=== PATIENT | female | born 1980 | race Caucasian/White ===

== ENCOUNTER 2018-11-09 15:13 | Outpatient (CLI) | payer BC ==
[2018-11-09 15:11] VITALS: BP 121/77
== END 2018-11-09 16:00 | disposition home or self-care (01) ==
LOC: ORTHO 15:13
PROVIDERS: ATTEND Orthopaedic Surgery
DX: S93.491A Sprain of other ligament of right ankle, initial encounter (principal); X58.XXXA Exposure to other specified factors, initial encounter; Y93.89 Activity, other specified; Y92.89 Other specified places as the place of occurrence of the external cause; Y99.8 Other external cause status
CPT/HCPCS: 73610; 99213

== ENCOUNTER 2020-02-07 20:48 | Inpatient (IN) | payer BC ==
[~2020-02-07] VITALS: Ht 154.9 cm; Wt 79.0 kg
[2020-02-07 18:03] VITALS: BP 111/73
[2020-02-07] MEDS ORDERED: normal saline 1000ML IV soln IV ONE (21:05)
[2020-02-07 21:30] LABS: BASOPHILS % (AUTO) 0.2 % (0-1); EOSINOPHILS % (AUTO) 0.2 % (0-6); HEMOGLOBIN 14.6 g/dl (12.0-16.0); LYMPHOCYTES # (AUTO) 1.3 X10'3 (1.1-4.8); MEAN CORPUSCULAR HEMOGLOBIN 29.2 PG (27.0-31.0); MEAN CORPUSCULAR HGB CONC 33.2 g/dL (33.0-36.5); MEAN CORPUSCULAR VOLUME 87.8 FL (78-98); MEAN PLATELET VOLUME 8.6 FL (7.4-10.4); MONOCYTES # (AUTO) 1.2 X10'3 (0-0.9); MONOCYTES % (AUTO) 5.6 % (2-12); NEUTROPHILS # (AUTO) 18.4 X10'3 (1.8-7.7); PLATELET COUNT 304 X10'3 (140-440); RED BLOOD COUNT 5.01 X10'6 (4.20-5.60); RED CELL DISTRIBUTION WIDTH 13.1 % (11.5-14.5)
[2020-02-07 21:46] LABS: ALANINE AMINOTRANSFERASE 21 U/L (12-78); ALBUMIN 4.3 G/DL (3.4-5.0); ALBUMIN/GLOBULIN RATIO 0.9 (1.1-1.5); ALKALINE PHOSPHATASE 66 IU/L (46-116); ANION GAP 12 (8-16); ASPARTATE AMINO TRANSFERASE 19 U/L (10-37); BILIRUBIN,TOTAL 0.7 MG/DL (0.1-1.0); BLOOD UREA NITROGEN 13 MG/DL (7-18); BUN/CREATININE RATIO 16.9 (6.6-38.0); CALCIUM 9.5 MG/DL (8.5-10.1); CHLORIDE 98 MMOL/L (99-107); CREATININE 0.77 MG/DL (0.40-0.90); GLUCOSE 111 MG/DL (70-104); LIPASE 109 U/L (73-393); MAGNESIUM 1.6 MG/DL (1.5-2.4); POTASSIUM 3.7 MMOL/L (3.5-5.1); SODIUM 136 MMOL/L (135-145); TOTAL CARBON DIOXIDE 26.3 MMOL/L (24-32); TOTAL PROTEIN 9.2 G/DL (6.4-8.2); eGFR 83 ML/MIN
[2020-02-07] MEDS ORDERED: cefepime 1GM in D5W 50mL 50 ML IV ONE (22:05)
[2020-02-07] MEDS ORDERED: cefepime inj. 1 GM in normal saline 100ml IV soln 100 ML IV ONE (22:11)
[2020-02-07] MEDS ORDERED: morphine 4 MG/ML inj SYRINge IV ONE (22:15)
[2020-02-07] MEDS ORDERED: iohexol 300mg/ml 100ml inj. ONE (22:21)
[2020-02-07 22:39] LABS: URINE HCG NEGATIVE (NEG)
[2020-02-07 22:40] LABS: CLARITY,URINE SLIGHTLY CLOUDY (Clear); COLOR,URINE YELLOW (Yellow); GLUCOSE, URINE NEGATIVE (Neg); KETONES,URINE NEGATIVE (Neg); LEUKOCYTE ESTERASE ,URINE SMALL (Neg); NITRITES, URINE NEGATIVE (Neg); OCCULT BLOOD,URINE LARGE (Neg); PROTEIN,URINE NEGATIVE (Neg); UROBILINOGEN,URINE 0.2 E.U/dL (0.2-1.0)
[2020-02-07 22:48] LABS: UA COLLECTION TYPE CLN CATCH MIDSTREAM
[2020-02-07 22:50] LABS: BACTERIA,URINE FEW /HPF (Neg); RBC,URINE 20-50 /HPF (0-2); SQUAMOUS EPITHELIAL CELL,UR FEW /LPF (FEW); WBC,URINE 0-4 /HPF (0-4)
[2020-02-07] MEDS ORDERED: LORazepam 2 mg/ml vial IV ONE (23:10)
[2020-02-07] MEDS ORDERED: ROSU10TA28 PO (23:21)
[2020-02-08] VITALS (19 sets, daily range): BP systolic 90–171; BP diastolic 58–78
[2020-02-08] MEDS ORDERED: acetaminophen 325mg tablet PO PRN (00:15)
[2020-02-08] MEDS ORDERED: mag hydrox/Alum hydrox/simeth 30ml oral suspension PO PRN (00:15)
[2020-02-08] MEDS ORDERED: magnesium hydroxide 30ml (MOM) UD suspension PO PRN (00:15)
[2020-02-08] MEDS ORDERED: morphine 2 MG/ML inj. syringe IV PRN ×3 (00:15→11:15)
--- NOTE | 2020-02-08 00:45 | NUR ---
Received report from Yael SOTO from the ER. Patient arrived at 0100 on a gurney, saline locked, room air, vss, a/o. No signs of distress will continue to monitor
[2020-02-08] MEDS: normal saline 1000ml 1,000 ML IV SCH ×3 (01:16→20:11)
[2020-02-08] MEDS ORDERED: acetaminophen 1,000mg/100ml IV 100 ML IV SCH (02:00)
--- NOTE | 2020-02-08 04:20 | NUR ---
Patient had a headache gave her 1 tylenol at 0420 with a little sip of water patient states her headache was a little better
[2020-02-08] MEDS ORDERED: acetaminophen 325mg tablet ONE (04:21)
--- NOTE | 2020-02-08 06:21 | NUR ---
Problems reprioritized. Patient report given, questions answered & plan of care reviewed with Vinicio SOTO.
[2020-02-08] MEDS: cefepime inj. 1 GM in normal saline 100ml IV soln 100 ML IV SCH ×3 (08:11→23:24)
[2020-02-08] MEDS ORDERED: BUPIVAcaine/PF 2.5 mg/ml (0.25%) 30ml vial ONE (08:29)
[2020-02-08] MEDS: ondansetron/PF 4mg/2ml inj IV PRN ×3 (08:52→21:57)
--- NOTE | 2020-02-08 09:14 | NUR ---
Report given to Kristine at the PACU over the phone
--- NOTE | 2020-02-08 10:30 | NUR ---
Patient just left the room, went to OR with the tech
[2020-02-08] MEDS ORDERED: sevoflurane 250ml liquid IH ONE (10:34)
[2020-02-08] MEDS ORDERED: midazolam 2 mg/2 ml injection ONE (10:38)
[2020-02-08] MEDS ORDERED: fentaNYL/PF 50MCG/1 ML 2ML syringe ONE (10:38)
[2020-02-08] MEDS ORDERED: rocuronium 10mg/ml inj IV ONE (11:09)
[2020-02-08] MEDS ORDERED: dexamethasone sod phosphate 4mg/ml inj. ONE (11:09)
[2020-02-08] MEDS ORDERED: ceFOXitin 2GM-NS 50mL ADDVANT. 50 ML IV ONE (11:09)
[2020-02-08] MEDS ORDERED: propofol inj 20 ML IV ONE (11:09)
[2020-02-08] MEDS ORDERED: ringers solution, lacted 1,000 ML IV SCH (11:11)
[2020-02-08] MEDS ORDERED: morphine 4 MG/ML inj SYRINge IV PRN (11:15)
[2020-02-08] MEDS ORDERED: ondansetron/PF 4mg/2ml inj IV PRN (11:15)
[2020-02-08] MEDS ORDERED: meperidine/PF 25mg/ml syringe IV PRN ×3 (11:15)
[2020-02-08] MEDS ORDERED: proCHLORperazine 10 MG/2 ml inj IV PRN (11:15)
[2020-02-08] MEDS ORDERED: ondansetron/PF 4mg/2ml inj ONE (11:39)
[2020-02-08] MEDS ORDERED: neostigmine methylsulfate 1 MG/ML 10ml vial ONE (11:39)
[2020-02-08] MEDS ORDERED: glycopyrrolate 0.2mg/ml inj ONE (11:40)
--- NOTE | 2020-02-08 11:59 | NUR ---
Received from OR via SURGICAL BED , accompanied by Anesthesiologist ISABELLA and report given by Anesthesiolgist. PATIENT WITH 20G PIV IN RIGHT AC URNNING LR AT 100, DENIES PAIN AT THIS TIME. PATIENT WITH 3 ABDOMINAL LAP SITES PRESENT AND ARE ALL CDI CURRENTLY. VSS. MEDICATED FOR NAUSEA AND POST OP SHIVERS UPON ARRIVAL. SCDS DONNED. 10L MASK ON WITH 100% SATURATIONS. Addendum: 02/08/20 at 1254 by Az Quezada RN, RN Amended: Links added.
--- NOTE | 2020-02-08 13:09 | NUR ---
ALL CRITERIA FOR TRANSFER TO THE FLOOR HAS BEEN ACHIEVED. REPORT GIVEN AND ALL QUESTIONS ANSWERED, VSS. BED LOW 2 RAILS UP, CALL LIGHT PRESENT AND PATIENT HOOKED UP TO ALL LINES AND VSS. PATIENTS BRITTANY RAMON PRESENT TO ACCEPT CARE. STILL WITH C.O. NAUSEA DESPITE CALLIE SOTO PRESENT TO ACCEPT Addendum: 02/08/20 at 1318 by Az Quezada RN, RN Amended: Links added.
--- NOTE | 2020-02-08 14:48 | NUR ---
Patient complaining of incision pain but she did not want to take Morphine as she did not feel good about it. Before surgery she was requesting for Ibuprofen for her migraine and she also want to try it for the incisional pain. Dr. Santamaria notified about this and order received.
[2020-02-08] MEDS: ibuprofen tablet 400 MG TABLET PO PRN ×2 (15:53→21:57)
--- NOTE | 2020-02-08 18:06 | NUR ---
Patient in room [facility]. I have received report from Vinicio SOTO and had the opportunity to ask questions and assume patient care.
--- NOTE | 2020-02-08 18:13 | NUR ---
Problems reprioritized. Patient report given, questions answered & plan of care reviewed with Elizabeth SOTO.
[2020-02-08] MEDS: lactobacillus rhamnosus 10,000 MMU CELLS/CAPSULE PO SCH (19:18)
[2020-02-09 00:06] VITALS: BP 113/74
[2020-02-09] MEDS: normal saline 1000ml 1,000 ML IV SCH ×3 (01:07→20:50)
[2020-02-09 04:10] VITALS: BP 104/70
[2020-02-09] MEDS: ibuprofen tablet 400 MG TABLET PO PRN ×3 (05:05→22:57)
[2020-02-09 05:23] LABS: ALANINE AMINOTRANSFERASE 21 U/L (12-78); ALBUMIN/GLOBULIN RATIO 0.8 (1.1-1.5); ALKALINE PHOSPHATASE 50 IU/L (46-116); ANION GAP 7 (8-16); ASPARTATE AMINO TRANSFERASE 15 U/L (10-37); BASOPHILS % (AUTO) 0.1 % (0-1); BILIRUBIN,TOTAL 0.4 MG/DL (0.1-1.0); BLOOD UREA NITROGEN 6 MG/DL (7-18); BUN/CREATININE RATIO 9.5 (6.6-38.0); CALCIUM 8.1 MG/DL (8.5-10.1); CHLORIDE 108 MMOL/L (99-107); CREATININE 0.63 MG/DL (0.40-0.90); EOSINOPHILS % (AUTO) 0 % (0-6); GLUCOSE 113 MG/DL (70-104); HEMATOCRIT 38.1 % (35.0-45.0); HEMOGLOBIN 12.5 g/dl (12.0-16.0); LYMPHOCYTES # (AUTO) 0.9 X10'3 (1.1-4.8); LYMPHOCYTES % (AUTO) 7.9 % (21-51); MEAN CORPUSCULAR HGB CONC 32.7 g/dL (33.0-36.5); MEAN CORPUSCULAR VOLUME 88.8 FL (78-98); MONOCYTES # (AUTO) 0.7 X10'3 (0-0.9); MONOCYTES % (AUTO) 5.8 % (2-12); NEUTROPHILS % (AUTO) 86.2 % (42-75); PLATELET COUNT 251 X10'3 (140-440); POTASSIUM 3.8 MMOL/L (3.5-5.1); RED CELL DISTRIBUTION WIDTH 13.3 % (11.5-14.5); SODIUM 139 MMOL/L (135-145); TOTAL CARBON DIOXIDE 23.7 MMOL/L (24-32); TOTAL PROTEIN 6.8 G/DL (6.4-8.2); WHITE BLOOD COUNT 11.6 X10'3 (4.5-11.0); eGFR > 90 ML/MIN
--- NOTE | 2020-02-09 06:25 | NUR ---
Problems reprioritized. Patient report given, questions answered & plan of care reviewed with Cynthia SOTO.
--- NOTE | 2020-02-09 06:57 | NUR ---
Patient in room [facility] 340. I have received report from BRITTANY Johnson and had the opportunity to ask questions and assume patient care.
[2020-02-09 08:00] VITALS: BP 116/64
[2020-02-09] MEDS: lactobacillus rhamnosus 10,000 MMU CELLS/CAPSULE PO SCH ×2 (08:07→20:49)
[2020-02-09] MEDS: cefepime inj. 1 GM in normal saline 100ml IV soln 100 ML IV SCH ×2 (08:08→16:18)
[2020-02-09] MEDS: ondansetron/PF 4mg/2ml inj IV PRN ×2 (10:30→16:13)
[2020-02-09 12:00] VITALS: BP 100/53
--- NOTE | 2020-02-09 17:23 | NUR ---
Dr. Chaudhry rounded stating pt is ok to dc'g home in am. DC'g instructions verbalized as on discharge instructions.
[2020-02-09 18:00] VITALS: BP 113/67
--- NOTE | 2020-02-09 18:10 | NUR ---
Patient in room [facility]. I have received report from BRITTANY Navarro and had the opportunity to ask questions and assume patient care.
--- NOTE | 2020-02-09 18:30 | NUR ---
Dr Chaudhry in to see pt. Ok to D/C pt in the AM 02/10/20
--- NOTE | 2020-02-09 19:46 | NUR ---
Problems reprioritized. Patient report given, questions answered & plan of care reviewed with ivonne TANG.
[2020-02-10 00:13] VITALS: BP 92/58
[2020-02-10] MEDS: cefepime inj. 1 GM in normal saline 100ml IV soln 100 ML IV SCH ×2 (00:18→07:41)
[2020-02-10] MEDS: normal saline 1000ml 1,000 ML IV SCH (03:42)
--- NOTE | 2020-02-10 06:13 | NUR ---
Problems reprioritized. Patient report given, questions answered & plan of care reviewed with BRITTANY Navarro.
--- NOTE | 2020-02-10 06:16 | NUR ---
Patient in room [facility]. I have received report from BRITTANY Wilson and had the opportunity to ask questions and assume patient care.
[2020-02-10 06:26] LABS: BASOPHILS % (AUTO) 0.3 % (0-1); EOSINOPHILS # (AUTO) 0.4 X10'3 (0-0.9); EOSINOPHILS % (AUTO) 3.5 % (0-6); HEMATOCRIT 32.8 % (35.0-45.0); LYMPHOCYTES % (AUTO) 29.2 % (21-51); MEAN CORPUSCULAR HGB CONC 33.5 g/dL (33.0-36.5); MEAN CORPUSCULAR VOLUME 89.7 FL (78-98); MEAN PLATELET VOLUME 9.1 FL (7.4-10.4); MONOCYTES # (AUTO) 0.6 X10'3 (0-0.9); NEUTROPHILS # (AUTO) 6.4 X10'3 (1.8-7.7); PLATELET COUNT 232 X10'3 (140-440); RED BLOOD COUNT 3.65 X10'6 (4.20-5.60); RED CELL DISTRIBUTION WIDTH 13.6 % (11.5-14.5); WHITE BLOOD COUNT 10.4 X10'3 (4.5-11.0)
[2020-02-10 06:41] LABS: ALANINE AMINOTRANSFERASE 14 U/L (12-78); ALBUMIN 2.6 G/DL (3.4-5.0); ALBUMIN/GLOBULIN RATIO 0.8 (1.1-1.5); ALKALINE PHOSPHATASE 42 IU/L (46-116); ANION GAP 8 (8-16); ASPARTATE AMINO TRANSFERASE 10 U/L (10-37); BILIRUBIN,TOTAL 0.4 MG/DL (0.1-1.0); BLOOD UREA NITROGEN 9 MG/DL (7-18); CALCIUM 7.5 MG/DL (8.5-10.1); CHLORIDE 110 MMOL/L (99-107); CREATININE 0.69 MG/DL (0.40-0.90); GLUCOSE 81 MG/DL (70-104); POTASSIUM 3.8 MMOL/L (3.5-5.1); SODIUM 142 MMOL/L (135-145); TOTAL CARBON DIOXIDE 24.2 MMOL/L (24-32); TOTAL PROTEIN 5.7 G/DL (6.4-8.2); eGFR > 90 ML/MIN
[2020-02-10 07:00] VITALS: BP 104/66
[2020-02-10] MEDS: ondansetron/PF 4mg/2ml inj IV PRN (07:37)
[2020-02-10] MEDS: lactobacillus rhamnosus 10,000 MMU CELLS/CAPSULE PO SCH (07:47)
[2020-02-10] MEDS: ibuprofen tablet 400 MG TABLET PO PRN (07:50)
[2020-02-10] MEDS ORDERED: ONDA4TAB6 PO (09:03)
[2020-02-10] MEDS ORDERED: CLIN-5 PO (09:03)
[2020-02-10] MEDS ORDERED: IBUP-1985 PO (09:06)
[2020-02-10] MEDS ORDERED: OMEP20CA15 PO (09:06)
[2020-02-10] MEDS ORDERED: ACET-1008 PO (09:06)
--- NOTE | 2020-02-10 09:51 | NUR ---
Pt. D/C'd home in stable conditions. IV removed with cannula intact. Pt tolerating regular diet well. medicated for nausea x1 prior discharge. Pt was escorted walking to main lobby, left the hospital via private vehicle accompanied by .
== END 2020-02-10 11:06 | disposition home or self-care (01) | DRG 854 ==
LOC: ER 20:49 → SUR 3N 02-08 00:11 → CMPBEDREQ 02-08 03:01 → SUR 3N 02-08 20:20
PROVIDERS: ADMIT Internal Medicine; ATTEND Internal Medicine
PROC: BW211ZZ Computerized Tomography (CT Scan) of Abdomen and Pelvis using Low Osmolar Contrast (ICD-10-PCS; 2020-02-07)
PROC: 0DTJ4ZZ Resection of Appendix, Percutaneous Endoscopic Approach (ICD-10-PCS; principal; 2020-02-08 10:34)
DX: A41.9 Sepsis, unspecified organism (principal); K35.80 Unspecified acute appendicitis; Z88.0 Allergy status to penicillin
CPT/HCPCS: Z7506; Z7508; 36415; 71045; 74177; 76700; 80053; 81001; 81025; 83605; 83690; 83735; 84145; 85025; 87040; 87081; 87088; 93005; 99285; A4215; A4314; A4618; A7000; G0378; J0131; J0692; J0694; J1100; J2060; J2175; J2250; J2270; J2405; J2704; J2710; J3010; J3490; J7030; J7120; Q9967

== ENCOUNTER 2023-05-08 20:46 | Emergency (ER) | payer BC, SELFPAY ==
[~2023-05-08] VITALS: Ht 154.9 cm; Wt 88.0 kg
[~2023-05-08 20:46] MED LIST: IBUP-1985 PO; OMEP20CA15 PO; ONDA4TAB6 PO; ROSU10TA28 PO
[2023-05-08] MEDS ORDERED: normal saline 1000ML IV soln IVB ONE (22:30)
[2023-05-08] MEDS ORDERED: loperamide 2mg capsule PO ONE (22:30)
[2023-05-08] MEDS ORDERED: ketorolac trometh. 30mg/ml inj. IV ONE (22:30)
[2023-05-08] MEDS ORDERED: ondansetron/PF 4mg/2ml inj IV ONE (22:40)
--- NOTE | 2023-05-08 22:59 | NUR ---
I have reviewed and agree with assessment by FRANCHISE BUSINESS CONSULTANT.
[2023-05-08 23:35] LABS: STREP A SCREEN NEGATIVE (Neg)
[2023-05-08] MEDS ORDERED: ONDA8TAB13 PO (23:44)
[2023-05-08] MEDS ORDERED: proCHLORperazine 10 MG/2 ml inj IV ONE (23:50)
[2023-05-09 00:22] VITALS: BP 115/67; PULSE 100; RESP 20; TEMP 100.1; O2SAT 96
== END 2023-05-09 00:24 | disposition home or self-care (01) ==
LOC: ER 20:46
DX: B34.9 Viral infection, unspecified (principal); Z88.0 Allergy status to penicillin; Z79.899 Other long term (current) drug therapy
CPT/HCPCS: 87081; 87502; 87503; 87880; 96361; 96374; 96375; 99284; J0780; J1885; J2405; J7030

== ENCOUNTER 2025-05-28 16:10 | Emergency (ER) | payer BC ==
[~2025-05-28] VITALS: Ht 154.9 cm; Wt 65.9 kg
[~2025-05-28 16:10] MED LIST changes: -IBUP-1985 PO; +IBUP600T52 PO; +ONDA-245 PO; -ROSU10TA28 PO; +ROSU10TA98 PO
[2025-05-28 16:17] VITALS: BP 131/98; PULSE 111; RESP 18; TEMP 98.2; O2SAT 99
--- NOTE | 2025-05-28 16:23 | Physician Documentation ---
History of Present Illness ~ Chief Complaint: Head Pain Stated Complaint: NECK/HEAD PAIN Primary Medical Doctor: NONE HPI This is a 45 yr old female with hx of anxiety disorder on prn xanax who presents to the emergency department for "nerve pain" behind the right ear. She describes the pain as intermittent, pulsating, and severe 9/10 when it occurs. Frequency is every few seconds. Takes no other prescribed medications, but does take supplements. Has tried acetaminophen and Ibuprofen at home with no alleviation of pain. Xanax has also not proven helpful. This began Thursday and has not let up. Notes that same issue occurred previously on left but subsided in under 48 hrs. Denies chills, fever, vomiting, but does admit to some nausea due to pain. Medication Reconciliation Allergies: Coded Allergies: Penicillins (Verified Allergy, Unknown, 05/28/25) Uncoded Allergies: EGG YOLKS (Allergy, Severe, ANAPHYLAXIS, 02/07/20) Scheduled Ibuprofen (Ibuprofen), 1 TAB PO Q8H Omeprazole (Omeprazole), 1 CAP PO DAILY Ondansetron 8mg ODT (Ondansetron Odt), 1 TAB PO Q6H Rosuvastatin Calcium (Rosuvastatin Calcium), 10 MG PO HS, (Reported) Scheduled PRN Ondansetron Hcl (Zofran), 4 MG PO Q8H PRN for nausea Past Medical History Past Medical History: No Pertinent History Past Surgical History: noncontributory Alcohol Use: None Drug Use: none Lives In: Home Occupation: employed Review of Systems ROS As stated above in the HPI, otherwise all systems are reviewed and negative. Physical Exam Vital Signs: Temperature: 98.2, Source: Temporal, Heart Rate: 111, Respiratory Rate: 18, BP: 131/98, Pulse Oximetry: 99, Weight: 65.910 Oxygen Flow Rate: 0 Physical Exam General: Alert, no apparent distress. HEENT: PERRL, EOMI, no injection, moist mucous membranes. Neck: Full range of motion. Respiratory: Lungs clear, no respiratory distress. Chest: No accessory muscle use. Cardiovascular: Regular rate and rhythm, no murmurs. Gastrointestinal: Soft, nontender, nondistended. Bowels sounds present. Extremities: Normal range of motion, no deformity. Neurologic: Oriented x4. Psychiatric: Normal mood and affect. Skin: Normal color, warm and dry. No edema, no ecchymosis. Progress Results/Orders Results/Orders Medications Received in ER Medications (Trade) Dose Ordered Sig/Luci Route PRN Reason Start Time Stop Time Status Last Admin Dose Admin (Benadryl capsule) 25 mg ONCE ONCE PO 05/28/25 16:25 05/28/25 16:26 DC 05/28/25 16:36 25 MG (Compazine inj) 10 mg ONCE ONCE IM 05/28/25 16:25 05/28/25 16:26 DC 05/28/25 16:36 10 MG Vital Signs 05/28/25 16:17 Temp 98.2 Pulse 111 Resp 18 B/P (MAP) 131/98 Pulse Ox 99 O2 Flow Rate 0 Medical Decision Making Additional information obtaine: old records Findings 05/08/23 was last visit to this facility for viral syndrome. Differential Dx:Considerations: Include: ROTH-Cluster, ROTH-Migraine, ROTH- Hypertensive, ROTH-Muscular contraction, ROTH-Post lumbar puncture, Carbon monoxide toxicity, Close head injuyr, CVA, Fever induced, Hemorrhage-Epidural, Hemor rhage-Intracerebral, Hemorrhage-Subarachnoid, Hemorrhage-Subdural, Mass lesion, Meningitis, Post-traumtic, Pseudotumor cerebri, Sinusitis, Temporal arteritis, Trigeminal neuralgia Additional Comment Most Likely Diagnoses: Occipital neuralgia is the leading consideration given the severe, intermittent neuralgic pain behind the ear, which fits the distribution of the greater or lesser occipital nerves. The pain is characteristically sharp and stabbing, often unilateral (though bilateral involvement can occur), and episodes are typically intermittent. The history of similar contralateral symptoms that resolved spontaneously supports this diagnosis, as occipital neuralgia can present with self-limited episodes. Physical examination would likely reveal tenderness over the occipital nerves.[1] Cervicogenic headache should be considered, particularly if pain radiates from the neck to the retroauricular and temporal regions. The most reliable clinical features include pain starting in the neck and radiating forward, ipsilateral shoulder/arm pain, and provocation by neck movement. However, the strictly checo ralgic quality and lack of mentioned neck symptoms make this somewhat less likely than occipital neuralgia.[2] Auriculotemporal neuralgia is possible given the strictly unilateral retroauricular location and neuralgic character. This condition presents with unilateral temporal/preauricular pain triggered by pressing the affected area, often with burning exacerbations lasting seconds to minutes. The mean age of onset (52.8 years) aligns with this patient's age, and it predominantly affects women.[3] Temporomandibular disorder (TMD) can present with retroauricular pain, though typically accompanied by jaw symptoms such as clicking, popping, or pain with chewing. The absence of these features makes TMD less likely as the primary diagnosis.[4] Most Important Not to Miss Diagnoses: Mastoiditis must be excluded, particularly given the retroauricular location. While the absence of fever and the intermittent neuralgic quality make acute mastoiditis unlikely, CT temporal bone with contrast would definitively rule out coalescent mastoiditis, bone erosion, or abscess formation. This is especially important if there is any tenderness over the mastoid process or history of recent ear infection.[5] Intracranial lesion (posterior fossa tumor, pituitary adenoma) requires consideration in any patient over 50 with new-onset unilateral headache, particularly when standard analgesics fail. MRI brain with and without contrast is the appropriate study to exclude neoplasm, especially given the patient's age and unilateral presentation.[6] Cervical artery dissection (vertebral or carotid) should be considered given the severe, sudden-onset nature of the pain and retroauricular location. While the intermittent pattern and prior self-limited episode make dissection less likely, CTA or MRA of the neck would be warranted if there are any associated neurologic symptoms, Vaughn syndrome, or if the pain has a sudden thunderclap quality.[7] Departure Disposition: 01 HOME / SELF CARE / HOMELESS Impression: Primary Impression: Headache Additional Impression: Neuralgia Condition: Stable Additional Instructions: Your Diagnosis You have been diagnosed with occipital neuralgia, a condition that causes severe, sharp, stabbing pain in the back of the head and behind the ear due to irritation of the occipital nerves. This condition is typically intermittent and can affect one or both sides of the head. [1] What to Expect Occipital neuralgia often improves with conservative treatment over time. Episodes of pain may come and go, and the condition can sometimes resolve spontaneously, as it did with your previous symptoms on the opposite side. Most patients respond well to a combination of conservative treatments including physical therapy, pain medication, and self-care measures. [2-3] Home Care and Self-Management Pain Control: Take [id number] pain medications as directed (ibuprofen or acetaminophen) Apply heat or ice packs to the back of your neck and head for 15-20 minutes at a time If prescribed, take any neuropathic pain medications (such as gabapentin or amitriptyline) exactly as directed [4] Posture and Positioning: Maintain good posture, especially when sitting at a desk or using electronic devices Avoid prolonged neck flexion or positions that compress the back of your head Use a supportive pillow that keeps your neck in a neutral position while sleeping [3][5] Activity Modifications: Gentle neck stretching and [id number]-[id number] exercises as tolerated Avoid sudden head movements or activities that trigger your pain Continue your normal activities as much as possible, but listen to your body [3][5] Physical Therapy: Attend all scheduled physical therapy appointments Physical therapy can help reduce muscle tension, improve posture, and provide long-term pain relief Your therapist may use manual therapy, exercises, and other modalities like TENS (transcutaneous electrical nerve stimulation) [2-3] Follow-Up Care Return for your scheduled follow-up appointment with your primary care provider or neurologist If conservative treatments do not provide adequate relief, your doctor may discuss additional options such as occipital nerve blocks, which can provide both diagnostic information and pain relief [5-6] For persistent or severe symptoms, specialized interventions such as pulsed radiofrequency treatment or occipital nerve stimulation may be considered [2][7] When to Seek Immediate Medical Attention Contact your doctor or go to the emergency department immediately if you experience any of the following: Sudden, severe "thunderclap" headache (worst headache of your life) Fever, neck stiffness, or confusion Vision changes, double vision, or drooping eyelid Weakness, numbness, or difficulty speaking Loss of balance or coordination Swelling, redness, or warmth behind the ear Ear drainage or hearing loss Any new neurological symptoms Contact Your Doctor if: Pain is not controlled with prescribed medications Pain significantly worsens or changes in character You develop new symptoms You have questions or concerns about your treatment Additional Resources Your healthcare team is here to support you. Don't hesitate to reach out with questions about your condition or treatment plan. Many patients with occipital neuralgia find significant improvement with appropriate treatment and self-care measures. Referrals: NO PRIMARY CARE PROVIDER (PCP) Education Educated: Patient Educated regarding: diagnosis, treatment, need for follow up Signature Scribe Signature: x Attestation: The note accurately reflects work and decisions made by me.Lovely Quezada NP 05/28/25 16:22 LOVELY TORRES NP May 28, 2025 16:23 SON ZHAO M[employer]I [employer]FT MAINTENANCE TECHNICIAN May 28, 2025 17:29
== END 2025-05-28 17:45 | disposition home or self-care (01) ==
LOC: ER 16:11
DX: R51.9 Headache, unspecified (principal); M79.2 Neuralgia and neuritis, unspecified; M54.9 Dorsalgia, unspecified; Z88.0 Allergy status to penicillin; Z88.8 Allergy status to other drugs, medicaments and biological substances
CPT/HCPCS: 96372; 99283; J0780; Q0163